=== PATIENT | male | born 1985 | race Caucasian/White ===

== ENCOUNTER 2021-07-15 16:26 | Emergency (ER) | payer OTHER ==
[~2021-07-15] VITALS: Ht 193 cm; Wt 111.4 kg
[2021-07-15 18:10] VITALS: BP 134/89
== END 2021-07-15 18:18 | disposition home or self-care (01) ==
LOC: ED 16:26
DX: S61.210A Laceration without foreign body of right index finger without damage to nail, initial encounter (principal); S61.212A Laceration without foreign body of right middle finger without damage to nail, initial encounter; W26.8XXA Contact with other sharp object(s), not elsewhere classified, initial encounter